=== PATIENT | male | born 2000 | race African-American/Black ===

== ENCOUNTER 2018-04-18 13:52 | Emergency (ER) | payer BC, OTHER, SELFPAY ==
[2018-04-18] MEDS ORDERED: Ketorolac Tromethamine 30 MG/ML VIAL ONE (14:51)
[2018-04-18] MEDS ORDERED: Metoclopramide HCl 10 MG/2 ML VIAL ONE (14:51)
[2018-04-18] MEDS ORDERED: diphenhydrAMINE 25 MG CAP ONE (14:54)
[2018-04-18 16:24] LABS: Color Of CSF Supernatant COLORLESS (Colorless); Tube # 1; Unspun CSF Color COLORLESS (Colorless)
[2018-04-18 16:30] LABS: CSF Source CSF; Clarity Clear (Clear); RBC Count - Manual 0 /cumm (None Seen); Tube # 2; WBC/NonHematics Count - Manual 2 /cumm (0-5)
[2018-04-18 16:31] LABS: CSF Source CSF; Clarity Clear (Clear); RBC Count - Manual 0 /cumm (None Seen); Tube # 4; WBC/NonHematics Count - Manual 1 /cumm (0-5)
[2018-04-18 16:42] LABS: CSF, Glucose 55 mg/dl (40-70); CSF, Protein 29 mg/dL (15-40)
== END 2018-04-18 17:44 | disposition home or self-care (01) ==
LOC: ERS 13:52
DX: R51 Headache (principal)
CPT/HCPCS: 62270; 82945; 84157; 87070; 87205; 89051; 96365; 96375; J1885; J2765